=== PATIENT | male | born 1980 ===

== ENCOUNTER 2017-04-27 17:49 | Emergency (ER) | payer BC ==
[2017-04-27 18:13] VITALS: TEMP 98.5; BMI 29.0
--- NOTE | 2017-04-27 18:25 | ED PDOC ---
Arrival/HPI - General Historian: Patient - History of Present Illness Time/Duration: Other (2 days) Symptom Course: Worsening Quality: Tightness Severity Level: 2 - General Chief Complaint: Bite Time Seen by Provider: 04/27/17 18:20 - History of Present Illness Narrative History of Present Illness (Text): 04/27/17 18:21 37yr old male presents today with concerns for bites to the lower leg. pt states yesterday he felt his left leg was itchy. pt states he scratched his lower leg and now has worsening redness to the leg. pt states he noticed swelling to the lower leg/calf. states he applied hydrocortisone cream today without improvement. pt c/o swelling and tightness in the lower leg. no fever/ chills. denies trauma or injury. Remote history of left leg surgery 3 years ago. no other complaints. (Jemima Felder) Past Medical History - Provider Review Nursing Documentation Reviewed: Yes - Travel History Have you recently traveled outside [place] w/in the past 3 mons?: No - Tetanus Immunization Tetanus Immunization: Unknown - Psychiatric Hx Substance Use: No - Surgical History Hx Orthopedic Surgery: Yes Other/Comment: bilateral tibia surgery in 2015 - Anesthesia Hx Anesthesia: Yes Hx Anesthesia Reactions: No Hx Malignant Hyperthermia: No Family/Social History - Physician Review Nursing Documentation Reviewed: Yes Family/Social History: Unknown Family HX Smoking Status: Never Smoked Hx Alcohol Use: No Hx Substance Use: No Allergies/Home Meds Allergies/Adverse Reactions: Allergies No Known Allergies Allergy (Verified 03/07/16 23:03) Review of Systems - Review of Systems Constitutional: absent: Fatigue, Fevers Respiratory: absent: SOB, Cough Cardiovascular: absent: Chest Pain, Palpitations Gastrointestinal: absent: Abdominal Pain, Nausea, Vomiting Genitourinary Male: absent: Dysuria Musculoskeletal: Arthralgias Skin: Rash Neurological: absent: Headache, Dizziness Psychiatric: absent: Anxiety, Depression Physical Exam Vital Signs Reviewed: Yes Temperature: Afebrile Blood Pressure: Normal Pulse: Regular Respiratory Rate: Normal Appearance: Positive for: Well-Appearing, Non-Toxic, Comfortable Pain Distress: None Mental Status: Positive for: Alert and Oriented X 3 - Systems Exam Head: Present: Atraumatic Neck: Present: Normal Range of Motion Respiratory/Chest: Present: Clear to Auscultation, Good Air Exchange. No: Respiratory Distress, Accessory Muscle Use Cardiovascular: Present: Regular Rate and Rhythm, Normal S1, S2. No: Murmurs Lower Extremity: Present: Normal ROM, Tenderness (+ tenderness over calf. minimal edema. ), Swelling, Erythema (there are two erythematous macules noted to left anterior lower leg; A: quarter sized erythematous macule located just inferior to the tibial tuberosity. B; there is a large irregularly shaped erythematous macule along the anterior inferior aspect of the lower leg + warmth. ), Neurovascularly Intact, Capillary Refill < 2 s. No: Deformity Neurological: Present: GCS=15 Skin: Present: Warm, Dry, Normal Color Psychiatric: Present: Alert, Oriented x 3 Vital Signs Temp Pulse Resp BP Pulse Ox 04/27/17 18:08 98.5 F 94 H 18 123/86 97 Medical Decision Making ED Course and Treatment: 04/27/17 18:36 I was available for consultation during PA evaluation. The chart was reviewed by me, and I agree with disposition. The documented history was done by the physician weatherization installer. The documented physical exam was done by the physician weatherization installer. The documented procedures were done by the physician weatherization installer. (Cipriano Martinez) 04/27/17 18:34 37yr old healthy male with 2 day history of pruritis rash to left lower leg with swelling. cbc: wnl cmp WNl venous duplex left lower leg; dvt negative; verbal report from [facility]. Bactrim ordered by mouth Keflex by mouth 04/27/17 20:27 pt non toxic well appearing; no distress. stable vitals. will d/c home with po abx and treat for cellulitis and f/u with pmd/chief dispatcher service. advised immediate return if symptoms worsen,persist or if new symptoms develop: High fevers, increasing pain, increasing redness, increasing swelling Patient verbalizes understanding of discharge instructions and need for immediate followup. Case was discussed with Dr. martinez impression: cellulitis, leg Motrin every 6 hours as needed for pain Keflex 1 tablet 4 times daily 7 days Bactrim 1 tablet twice daily 7 days Follow-up with primary care physician within the next 2 days Follow-up with the chief dispatcher service within the next 2 days Return immediately if symptoms worsen or persist or if new symptoms develop: High fevers, increasing pain, increasing redness, increasing swelling or if any other concerning symptoms develop (Jemima Felder) - Lab Interpretations Lab Results: 04/27/17 18:43 04/27/17 18:43 Lab Results 04/27/17 18:43: WBC 7.4, RBC 5.05, Hgb 15.2, Hct 45.2, MCV 89.5, MCH 30.1, MCHC 33.6, RDW 14.2, Plt Count 288, MPV 10.2, Gran % 43.8 L, Lymph % (Auto) 43.0 H, [place] % (Auto) 8.8 H, Eos % (Auto) 4.3, Baso % (Auto) 0.1, Gran # 3.23, Lymph # 3.2, [place] # 0.7 H, Eos # 0.3, Baso # 0.01 04/27/17 18:43: Sodium 142, Potassium 4.0, Chloride 101, Carbon Dioxide 27, Anion Gap 18, BUN 20, Creatinine 1.1, Est GFR ( Amer) > 60, Est GFR (Non- Af Amer) > 60, Random Glucose 92, Calcium 9.9, Total Bilirubin 0.8, AST 30, ALT 46, Alkaline Phosphatase 69, Total Protein 8.9 H, Albumin 4.9 H, Globulin 4.0, Albumin/Globulin Ratio 1.2 - RAD Interpretation Radiology Orders: 04/27/17 18:20 DUPLEX LOWER EXTRM VEIN LEFT [US] Stat Disposition/Present on Arrival - Present on Arrival Any Indicators Present on Arrival: No History of DVT/PE: No History of Uncontrolled Diabetes: No Urinary Catheter: No History of Decub. Ulcer: No History Surgical Site Infection Following: None - Disposition Have Diagnosis and Disposition been Completed?: Yes Disposition Time: 19:29 Patient Plan: Discharge - Disposition Diagnosis: Cellulitis, leg Disposition: HOME/ ROUTINE Condition: GOOD Discharge Instructions (ExitCare): Cellulitis (ED) Additional Instructions: Motrin every 6 hours as needed for pain Keflex 1 4 times daily 7 days Bactrim 1 tablet twice daily 7 days Follow-up with primary care physician within the next 2 days Follow-up with the chief dispatcher service within the next 2 days Return immediately if symptoms worsen or persist or if new symptoms develop: High fevers, increasing pain, increasing redness, increasing swelling or if any other concerning symptoms develop Prescriptions: Cephalexin [Keflex] 500 mg PO QID #28 capsule Ibuprofen [Motrin] 600 mg PO Q6H PRN #20 tab PRN Reason: pain/fever reduction Sulfamethoxazole/Trimethoprim [Bactrim DS 800 mg-160 mg] 1 tab PO BID #14 tab Referrals: Glendy Mack MD [Staff Provider] - Follow up with primary Jin Nelson MD [Staff Provider] - Follow up with primary Forms: [employer] ([place])
[2017-04-27 18:56] LABS: BASO # 0.01 K/mm3 (0.0-2.0); BASO % 0.1 % (0.0-3.0); EOS # 0.3 (0.0-0.7); EOS % 4.3 % (1.5-5.0); GRAN # 3.23 (1.4-6.5); GRAN % 43.8 % (50.0-68.0); HEMOGLOBIN 15.2 g/dL (14.0-18.0); LYMPH # 3.2 (1.2-3.4); MEAN CELL VOLUME 89.5 fl (80.0-105.0); MEAN CORPUSCULAR HEMOGLOBIN 30.1 pg (25.0-35.0); MEAN CORPUSCULAR HGB CONC 33.6 g/dl (31.0-37.0); MEAN PLATELET VOLUME 10.2 fl (7.0-11.0); MONO # 0.7 (0.1-0.6); MONO % 8.8 % (1.0-6.0); PLATELET COUNT 288 10^3/uL (120.0-450.0); RBC 5.05 10^6/uL (3.5-6.1); RED CELL DISTRIBUTION WIDTH 14.2 % (11.5-14.5); WHITE BLOOD COUNT 7.4 10^3/ul (4.5-11.0)
[2017-04-27 18:59] LABS: ALB/GLOB RATIO 1.2 (1.1-1.8); ALBUMIN 4.9 g/dL (3.0-4.8); ALT/SGPT 46 U/L (7-56); AST/SGOT 30 U/L (15-59); BLOOD UREA NITROGEN 20 mg/dL (7-21); CALCIUM 9.9 mg/dL (8.4-10.5); GFR AFRICAN-AMERICAN > 60; GFR NON-AFRICAN AMERICAN > 60
[2017-04-27] MEDS ORDERED: Tmp-Smz 800 mg-160 mg DS Tab PO STA (20:23)
[2017-04-27 21:06] VITALS: BP 124/83; PULSE 89; RESP 16; O2SAT 99
--- NOTE | 2017-04-28 08:07 | US ---
PROCEDURE: Left lower extremity venous US HISTORY: Leg pain and swelling. Evaluate for DVT. PHYSICIAN(S): Richardson Dexter MD. TECHNIQUE: Duplex sonography and color-flow Doppler with graded compression were used to evaluate the deep venous system of the left lower extremity. FINDINGS: The visualized deep venous system of the left lower extremity is sonographically normal and compressible. Normal wave forms and augmentation are seen. There is no sonographic evidence for deep venous thrombosis in the visualized segments of the left lower extremity. IMPRESSION: 1. No sonographic evidence for deep venous thrombosis in the visualized segments of the left lower extremity.
== END 2017-04-27 20:55 | disposition home or self-care (01) ==
LOC: ED 17:49
DX: L03.116 Cellulitis of left lower limb (principal)

== ENCOUNTER 2018-01-09 15:49 | Emergency (ER) | payer BC ==
[2018-01-09 15:51] VITALS: BMI 29.7
[2018-01-09 15:52] VITALS: BP 143/89; PULSE 92; RESP 18; TEMP 98; O2SAT 96
--- NOTE | 2018-01-09 16:17 | ED PDOC ---
Arrival/HPI - General Chief Complaint: ENT Problem Time Seen by Provider: 01/09/18 15:53 Historian: Patient - History of Present Illness Narrative History of Present Illness (Text): 01/09/18 16:13 37 yo male with no PMHx, presents to the ED c/o sore throat x 1. Pain in mostly on left side. Denies fever, chills or bodyaches. No cough. No nasal congestion. No difficulty swallowing. Some pain with swallowing but able to tolerate PO fluids. His daughter was seen last night in an ED and was diagnosed with viral illness. No recent travel. No suspicion of STDs. PMD: Forgets name but has one. Past Medical History - Infectious Disease Hx of Infectious Diseases: None - Tetanus Immunization Tetanus Immunization: Unknown - Psychiatric Hx Substance Use: No - Surgical History Hx Orthopedic Surgery: Yes Other/Comment: bilateral tibia surgery in 2014 - Anesthesia Hx Anesthesia: Yes Hx Anesthesia Reactions: No Hx Malignant Hyperthermia: No Family/Social History Family/Social History: No Known Family HX Smoking Status: Never Smoked Hx Alcohol Use: Yes Frequency of alcohol use: Socially Hx Substance Use: No Allergies/Home Meds Allergies/Adverse Reactions: Allergies No Known Allergies Allergy (Verified 03/07/16 23:03) Home Medications: Home Meds Medication Instructions Recorded Confirmed No Known Home Med 01/09/18 01/09/18 Review of Systems - Review of Systems Constitutional: Normal Eyes: Normal ENT: Sore Throat. absent: Tinnitus, Voice Changes, Rhinorrhea, Sinus Congestion Respiratory: Normal. absent: SOB, Cough Cardiovascular: Normal Gastrointestinal: Normal Genitourinary Male: Normal Musculoskeletal: Normal Skin: Normal Neurological: Normal Endocrine: Normal Hemo/Lymphatic: Normal Psychiatric: Normal Physical Exam Vital Signs Temp Pulse Resp BP Pulse Ox 01/09/18 15:51 98.0 F 92 H 18 143/89 96 Temperature: Afebrile Blood Pressure: Normal Pulse: Regular Respiratory Rate: Normal Appearance: Positive for: Well-Appearing, Non-Toxic, Comfortable Pain Distress: None Mental Status: Positive for: Alert and Oriented X 3 - Systems Exam Conjunctiva: Present: Normal Mouth: Present: Moist Mucous Membranes, Normal Lips, Normal Tounge. No: Drooling, Trismus Pharnyx: Present: Normal, TONSILS ENLARGED (left cervical), Other (left cervical tonsillar tenderness and swelling). No: ERYTHEMA, EXUDATE, Uvular Deviation Nose (External): Present: Atraumatic Nose (Internal): Present: Normal Inspection Neurological: Present: GCS=15, CN II-XII Intact, Speech Normal, Motor Func Grossly Intact, Normal Sensory Function Skin: Present: Warm Psychiatric: Present: Alert, Oriented x 3, Normal Insight, Normal Concentration Disposition/Present on Arrival - Present on Arrival Any Indicators Present on Arrival: No History of DVT/PE: No History of Uncontrolled Diabetes: No Urinary Catheter: No History of Decub. Ulcer: No History Surgical Site Infection Following: None - Disposition Have Diagnosis and Disposition been Completed?: Yes Diagnosis: Pharyngitis Disposition: HOME/ ROUTINE Disposition Time: 16:14 Patient Plan: Discharge Patient Problems: Current Active Problems Problem Status Onset Pharyngitis Acute Condition: IMPROVED Discharge Instructions (ExitCare): Viral Pharyngitis Additional Instructions: Mr Lazar, thank you for letting us take care of you today. Your provider was Dr. Winter. You were treated for Pharyngitis. The emergency medical care you received today was directed at your acute symptoms. If you were prescribed any medication, please fill it and take as directed. It may take several days for your symptoms to resolve. Return to the Emergency Department if your symptoms worsen, do not improve, or if you have any other problems. Please contact your doctor or call one of the physicians/clinics you have been referred to that are listed on the Patient Visit Information form that is included in your discharge packet. Bring any paperwork you were given at discharge with you along with any medications you are taking to your follow up visit. Our treatment cannot replace ongoing medical care by a primary care provider (PCP) outside of the emergency department. Thank you for allowing the [facility] team to be part of your care today. If you had an X-Ray or CT scan: A Radiologist will review the ED reading if any change in treatment is needed we will contact you. If you had a blood, urine, or wound culture: It will take several days for the results, if any change in treatment is needed we will contact you. If you had an STI test: It will take 48 hours for the results. Please call after 1 week if you have not heard back. Referrals: PCP,NO [Primary Care Provider] - Follow up with primary Forms: [employer] (Citizen Of [place]), WORK NOTE
== END 2018-01-09 16:34 | disposition home or self-care (01) ==
LOC: ED 15:49
DX: J02.9 Acute pharyngitis, unspecified (principal)